=== PATIENT | female | born 1965 | race Caucasian/White ===

== ENCOUNTER 2023-06-19 17:52 | Emergency (ER) | payer OTHER ==
[~2023-06-19] VITALS: Ht 167.6 cm; Wt 91.0 kg
[2023-06-19 17:55] VITALS: TEMP 98; O2SAT 98
[2023-06-19] MEDS ORDERED: ONDANSETRON HCL 4MG/2ML INJ IV STA (18:45)
[2023-06-19] MEDS ORDERED: ACETAMINOPHEN 325MG TABLET PO STA (18:45)
[2023-06-19 19:22] LABS: EOSINOPHILS % 2.3 % (0.0-5.0); HEMOGLOBIN. 13.5 g/dL (12.0-16.0); LYMPHOCYTES % 39.5 % (20.0-50.0); MEAN CORPUSCULAR HEMOGLOBIN 29.5 pg (28.0-32.0); MEAN CORPUSCULAR HGB CONC 32.1 g/dL (31.0-37.0); MEAN CORPUSCULAR VOLUME 91.7 fL (81.0-99.0); MEAN PLATELET VOLUME 7.8 fl (7.4-10.4); MONOCYTES % 5.6 % (2.0-8.0); NEUTROPHILS % 51.6 % (40.0-76.0); PLATELET 294 x1000/uL (130-400); RED BLOOD CELL COUNT 4.57 mill/uL (4.2-5.4); RED CELL DISTRIBUTION WIDTH 13.7 % (11.6-14.6); WHITE BLOOD COUNT 6.8 x1000/uL (4.5-11.0)
[2023-06-19 19:30] LABS: CHLORIDE 108 mEq/L (98-107); INDEX HEMOLYSI 1 (1-3); INDEX ICTERIC 1 (1-4); INDEX LIPEMIC 1 (1-3); SODIUM 140 mEq/L (136-145)
[2023-06-19 19:42] LABS: ALANINE AMINOTRANSFERASE 18 IU/L (13-61); ALBUMIN 3.8 g/dL (3.4-5.0); ASPARTATE AMINOTRANSFERASE 12 IU/L (15-37); BILIRUBIN TOTAL 0.6 mg/dL (0.1-1.0); CALCIUM 9.3 mg/dL (8.5-10.1); CARBON DIOXIDE 26 mEq/L (21-32); CREATININE 0.8 mg/dL (0.6-1.3); GLUCOSE 105 mg/dL (70-105); PROTEIN TOTAL 7.7 g/dL (6.0-8.3); TROPONIN I HIGH SENSITIVITY 4 ng/L (<54); UREA NITROGEN BLOOD 9 mg/dL (7-21)
[2023-06-19 21:15] LABS: TROPONIN I HIGH SENSITIVITY 5 ng/L (<54)
[2023-06-19] MEDS ORDERED: ONDANSETRON HCL 4MG/2ML INJ IV NR (21:15)
[2023-06-19] MEDS ORDERED: ACETAMINOPHEN 325MG TABLET PO NR (21:15)
[2023-06-19 23:59] VITALS: BP 122/76; PULSE 78; RESP 20
== END 2023-06-20 | disposition home or self-care (01) ==
LOC: ER 17:52
DX: M54.50 Low back pain, unspecified (principal); R20.0 Anesthesia of skin; R10.9 Unspecified abdominal pain
CPT/HCPCS: 99285; 71275; 74174; 96374; 80053; 83690; 85025; 84484; 36415; 70450; J2405